=== PATIENT | female | born 1970 | race Two or more races ===

== ENCOUNTER → 2024-04-10 | Outpatient (CLI) | payer OTHER, SELFPAY ==
--- NOTE | 2024-04-10 | XR_ITS ---
Examination: Diagnostic digital mammography, bilateral Computer aided detection 3-D breast Tomosynthesis, bilateral Date and time of exam: April 10, 2024 1508 hours INDICATIONS: Mammogram July 04, 2022 15 mm oval mass outer left breast Technique: Nonmagnified MLO, CC views of the breasts to been obtained, reconstructed from 3-D Tomosynthesis images. R2 computer aided detection program utilized for evaluation of suspicious masses and/or abnormal calcifications. 3-D Tomosynthesis images obtained. Findings: Scattered areas of fibroglandular density Circumscribed 11 mm mass 3:00 position left breast again noted, corresponding to the 3:00 nodule 11 mm on the left breast sonogram today Impression: BI-RADS Category 3: Probably benign findings One additional 6 month left mammogram follow-up is needed to document stability of 3:00 nodule described above.
--- NOTE | 2024-04-10 14:00 | XR_ITS ---
Examination: Breast ultrasound, unilateral, left complete Date and time of exam: April 10, 2024 1450 hours INDICATIONS: Mammogram July 04, 2022 15 mm oval mass 3:00 position left breast, left breast sonogram July 04, 2022 3:00 nodule 15 x 9 mm Technique: Real-time lay scale ultrasonographic imaging performed left breast including all 4 quadrants as well as nipple retroareolar and axillary region. Findings: 3:00 oval mass circumscribed 11 x 4 x 10 mm IMPRESSION: BI-RADS Category 3: Probably benign findings Recommend 1 additional 6 month left breast sonogram follow-up to document stability of 10:00 nodule described above
== END | disposition home or self-care (01) ==
PROVIDERS: PCP Registered Nurse; Referring Provider Registered Nurse; Visit Provider Registered Nurse
DX: R92.333 Mammographic heterogeneous density, bilateral breasts (principal); N63.25 Unspecified lump in the left breast, overlapping quadrants; N63.22 Unspecified lump in the left breast, upper inner quadrant
CPT/HCPCS: 76641; 77062; 77066; G0279

== ENCOUNTER → 2024-12-19 | Outpatient (CLI) | payer OTHER, SELFPAY ==
--- NOTE | 2024-12-19 11:15 | XR_ITS ---
Examination: Breast ultrasound, unilateral, left complete Date and time of exam: December 19, 2024 1150 hours INDICATIONS: Left breast sonogram April 10, 2024 3:00 nodule 11 mm Technique: Real-time lay scale ultrasonographic imaging performed left breast including all 4 quadrants as well as nipple retroareolar and axillary region. Findings: 3:00 nodule circumscribed 12 x 9 mm IMPRESSION: BI-RADS Category 3: Probably benign findings. Recommend 1 additional 6 month left breast sonogram follow-up to document continued stability of 3:00 nodule described above
--- NOTE | 2024-12-19 11:45 | XR_ITS ---
Examination: Diagnostic digital mammography, unilateral, left Computer aided detection 3-D breast Tomosynthesis, unilateral Date and time of exam: December 19, 2024 1140 hours INDICATIONS: Mammogram April 10, 2024, July 04, 2022 15 mm oval mass outer left breast Technique: Nonmagnified MLO, CC views of the left breast have been obtained, reconstructed from 3-D Tomosynthesis images. R2 computer aided detection program utilized for evaluation of suspicious masses and/or abnormal calcifications. 3-D Tomosynthesis images obtained. Findings: Scattered areas of fibroglandular density Stable 12 mm nodule 3:00 position left breast Impression: BI-RADS category 2: Benign findings Recommend yearly follow-up mammography
== END | disposition home or self-care (01) ==
PROVIDERS: PCP Registered Nurse; Referring Provider Registered Nurse; Visit Provider Registered Nurse
DX: R92.322 Mammographic fibroglandular density, left breast (principal); N63.25 Unspecified lump in the left breast, overlapping quadrants
CPT/HCPCS: 76641; 77061; 77065; G0279